=== PATIENT | female | born 1960 | race Caucasian/White ===

== ENCOUNTER 2021-07-31 08:34 | Outpatient (CLI) | payer BC | END 2021-07-31 08:35 | disposition home or self-care (01) | LOC: CSHMAMMO 08:34 | PROVIDERS: ATTEND Family Medicine | DX: Z12.31 Encounter for screening mammogram for malignant neoplasm of breast (principal) | CPT/HCPCS: 77063; 77067 ==

== ENCOUNTER 2022-08-06 10:40 | Outpatient (CLI) | payer BC | END 2022-08-06 10:41 | disposition home or self-care (01) | LOC: CSHMAMMO 10:40 | PROVIDERS: ATTEND Family Medicine | DX: Z12.31 Encounter for screening mammogram for malignant neoplasm of breast (principal) | CPT/HCPCS: 77063; 77067 ==

== ENCOUNTER 2023-08-12 12:21 | Outpatient (CLI) | payer MEDICARE, BC | END 2023-08-12 12:22 | disposition home or self-care (01) | LOC: CSHMAMMO 12:21 | PROVIDERS: ATTEND Family Medicine | DX: Z12.31 Encounter for screening mammogram for malignant neoplasm of breast (principal) | CPT/HCPCS: 77063; 77067 ==

== ENCOUNTER 2024-08-17 13:30 | Outpatient (CLI) | payer MEDICARE, BC | END 2024-08-17 13:31 | disposition home or self-care (01) | LOC: CSHMAMMO 13:30 | PROVIDERS: ATTEND Family Medicine | DX: Z12.31 Encounter for screening mammogram for malignant neoplasm of breast (principal) | CPT/HCPCS: 77063; 77067 ==